=== PATIENT | female | born 1960 | race Caucasian/White ===

== ENCOUNTER 2018-02-26 16:16 | Emergency (ER) | payer OTHER ==
[2018-02-26 17:52] LABS: PLATELET COUNT 317 10^3/uL (150-400)
--- NOTE | 2018-02-26 18:09 | EDPHY ---
H & P Stated Complaint: OFF HCTZ 1 MONTH INCREASING BP/EDEMA/TINGLING IN FEET/SOB Time Seen by Provider: 02/26/18 17:10 HPI/ROS: CHIEF COMPLAINT: High blood pressure, leg swelling, fatigue HISTORY OF PRESENT ILLNESS: 58-year-old female with a history of hypertension, chronically on lisinopril, recently taken off hydrochlorothiazide, presents reporting fatigue over the last month to 3 weeks, shortness of breath, leg swelling over the last month to 3 weeks, and today noticed her blood pressure to be 150-160 systolic. She also reports feeling dizzy, off balance like she might fall. The symptoms have been present for several weeks. It is unclear if they are worse today. Patient reports being taken off her hydrochlorothiazide 1 month ago. She denies any chest pain. Shortness of breath is rather vague, states that she just feels like she is overall tired. No palpitations. No vomiting or diarrhea. No urinary complaints. No headache. No lightheadedness. REVIEW OF SYSTEMS: A comprehensive 10 system review of systems was reviewed and is otherwise negative aside from elements mentioned in the history of present illness. PAST MEDICAL HISTORY: Hypertension. Denies coronary artery disease history. SOCIAL HISTORY: Nonsmoker. Reports significant stress. VITAL SIGNS Reviewed by me. GENERAL: Well-developed, well-nourished, resting comfortably in no respiratory distress. HEENT: Atraumatic. Eyes: No icterus, no injection. Mouth: moist mucous membranes. No erythema or lesions. Neck: supple with no adenopathy. LUNGS: Clear to auscultation bilaterally, no wheezes, rhonchi or rales. CARDIAC: Regular rate and rhythm, no rubs, murmurs or gallops. ABDOMEN: Soft, nontender, nondistended, bowel sounds normal. BACK: No CVA tenderness. EXTREMITIES: No trauma. Moderate pitting edema of the left foot and toes. Trace edema in the pretibial region on the left. Trace edema on the right. Range of motion is normal throughout. NEURO: Alert and oriented, cranial nerves 2-12 are intact. Motor strength 5/5 throughout. Finger-nose and heel-caraballo normal bilaterally. Patient did walk around the emergency department with no gross gait abnormalities but reported frequently that she felt like she was off balance and might fall. SKIN: Warm and dry, no rash. PSYCHIATRIC: Normal mentation, no agitation. - Personal History Current Tetanus Diphtheria and Acellular Pertussis (TDAP): No - Medical/Surgical History Hx Asthma: No Hx Chronic Respiratory Disease: No Hx Diabetes: No Hx Cardiac Disease: No Hx Renal Disease: No Hx Cirrhosis: No Hx Alcoholism: No Hx HIV/AIDS: No Hx Splenectomy or Spleen Trauma: No Other PMH: HTN - Social History Smoking Status: Current every day smoker Constitutional: Initial Vital Signs Temperature (C) 36.9 C 02/26/18 16:20 Heart Rate 67 02/26/18 16:20 Respiratory Rate 18 02/26/18 16:20 Blood Pressure 154/97 H 02/26/18 16:20 O2 Sat (%) 96 02/26/18 16:20 O2 Delivery Mode Room Air Allergies/Adverse Reactions: ampicillin Allergy (Verified 02/26/18 16:19) Cephalosporins Allergy (Verified 02/26/18 16:20) Penicillins Allergy (Verified 02/26/18 16:19) Home Medications: Medication Instructions Recorded Lisinopril 02/26/18 Medical Decision Making - Diagnostics EKG Interpretation: 12-LEAD EKG: Please see the full report in [facility]. My interpretation: Sinus rhythm, nonspecific T-wave abnormalities in the anterior leads. Imaging Results: Imaging Impressions Chest X-Ray 02/26/18 17:29 Impression: No acute findings in the chest. ED Course/Re-evaluation: IV was placed. Patient's EKG is nonischemic although she does have some borderline T-wave abnormalities in the anterior precordium. Bedside troponin was negative. Labs demonstrate normal electrolytes, normal CBC. Chest x-ray normal. BNP 77. Given patient's complaints of feeling very off balance, feeling unsafe, feeling like she might fall with no clear nystagmus on examination, patient received meclizine 25 mg by mouth and MRI of the brain was ordered. 4 hr troponin was ordered and was negative. Patient was ambulated after receiving meclizine. She reports feeling somewhat drowsy but not as vertiginous as previously. MRI of the brain demonstrates no stroke or other significant findings. Patient comfortable being discharged to home with instructions to take meclizine as needed for dizziness, off balance feeling, to follow up with her primary care physician regarding the feet swelling and tingling. Differential Diagnosis: Differential diagnosis for the patient's shortness of breath was considered including but not limited to pulmonary infectious processes, COPD exacerbation, pulmonary emboli, pulmonary edema, congestive heart failure, and cardiac causes. Differential diagnosis of the patient's dizziness was considered including but not limited to peripheral and central causes of vertigo, cardiac arrhythmias, cardiac ischemia, electrolyte disturbances, neurologic causes, orthostatic causes including dehydration, and blood loss. - Data Points Laboratory Results: Laboratory Results 02/26/18 17:25 02/26/18 17:25 02/26/18 02/26/18 02/26/18 17:39 17:25 17:25 WBC RBC Hgb Hct MCV MCH MCHC RDW Plt Count MPV Neut % (Auto) Lymph % (Auto) [place] % (Auto) Eos % (Auto) Baso % (Auto) Nucleat RBC Rel Count Absolute Neuts (auto) Absolute Lymphs (auto) Absolute Monos (auto) Absolute Eos (auto) Absolute Basos (auto) Absolute Nucleated RBC Immature Gran % Immature Gran # D-Dimer < 0.27 ug/mLFEU ug/mLFEU (0.00-0.50) Sodium 137 mEq/L mEq/L (135-145) Potassium 4.1 mEq/L mEq/L (3.3-5.0) Chloride 105 mEq/L mEq/L (97-110) Carbon Dioxide 26 mEq/l mEq/l (22-31) Anion Gap 6 mEq/L L mEq/L (8-16) BUN 18 mg/dL mg/dL (7-23) Creatinine 0.5 mg/dL L mg/dL (0.6-1.0) Estimated GFR > 60 Glucose 92 mg/dL mg/dL (70-100) Calcium 9.4 mg/dL mg/dL (8.5-10.4) Total Bilirubin 0.4 mg/dL mg/dL (0.1-1.4) Conjugated Bilirubin 0.1 mg/dL mg/dL (0.0-0.5) Unconjugated Bilirubin 0.3 mg/dL mg/dL (0.0-1.1) AST 19 IU/L IU/L (14-46) ALT 43 IU/L IU/L (9-52) Alkaline Phosphatase 40 IU/L IU/L (38-126) POC Troponin I 0.00 ng/mL ng/mL (0.00-0.08) NT-Pro-B Natriuret Pep 77 pg/mL pg/mL (0-125) Total Protein 6.0 g/dL L g/dL (6.3-8.2) Albumin 3.8 g/dL g/dL (3.5-5.0) Lipase 59 IU/L IU/L (23-300) 02/26/18 17:25 WBC 7.04 10^3/uL 10^3/uL (3.80-9.50) RBC 4.46 10^6/uL 10^6/uL (4.18-5.33) Hgb 13.2 g/dL g/dL (12.6-16.3) Hct 40.0 % % (38.0-47.0) MCV 89.7 fL fL (81.5-99.8) MCH 29.6 pg pg (27.9-34.1) MCHC 33.0 g/dL g/dL (32.4-36.7) RDW 13.2 % % (11.5-15.2) Plt Count 317 10^3/uL 10^3/uL (150-400) MPV 9.4 fL fL (8.7-11.7) Neut % (Auto) 56.1 % % (39.3-74.2) Lymph % (Auto) 30.8 % % (15.0-45.0) [place] % (Auto) 10.2 % % (4.5-13.0) Eos % (Auto) 1.8 % % (0.6-7.6) Baso % (Auto) 0.7 % % (0.3-1.7) Nucleat RBC Rel Count 0.0 % % (0.0-0.2) Absolute Neuts (auto) 3.94 10^3/uL 10^3/uL (1.70-6.50) Absolute Lymphs (auto) 2.17 10^3/uL 10^3/uL (1.00-3.00) Absolute Monos (auto) 0.72 10^3/uL 10^3/uL (0.30-0.80) Absolute Eos (auto) 0.13 10^3/uL 10^3/uL (0.03-0.40) Absolute Basos (auto) 0.05 10^3/uL 10^3/uL (0.02-0.10) Absolute Nucleated RBC 0.00 10^3/uL 10^3/uL (0-0.01) Immature Gran % 0.4 % % (0.0-1.1) Immature Gran # 0.03 10^3/uL 10^3/uL (0.00-0.10) D-Dimer Sodium Potassium Chloride Carbon Dioxide Anion Gap BUN Creatinine Estimated GFR Glucose Calcium Total Bilirubin Conjugated Bilirubin Unconjugated Bilirubin AST ALT Alkaline Phosphatase POC Troponin I NT-Pro-B Natriuret Pep Total Protein Albumin Lipase Medications Given: Discontinued Medications Meclizine HCl (Meclizine Hcl) 25 mg PO EDNOW ONE Stop: 02/26/18 18:36 Last Admin: 02/26/18 18:44 Dose: 25 mg Point of Care Test Results: Chemistry 02/26/18 17:39 POC Troponin I 0.00 ng/mL ng/mL (0.00-0.08) Departure - Departure Disposition: Home, Routine, Self-Care Clinical Impression: Shortness of breath, Peripheral edema, Dizziness Condition: Good Instructions: Vertigo (ED), Dyspnea (ED), Fatigue (ED), Leg Edema (ED) Additional Instructions: I recommend meclizine 25 mg every 8 hr as needed for dizziness. Please follow up with your primary care physician regarding the swelling in your leg and your shortness of breath. Keep track of your blood pressures and discussed whether you should be placed back on hydrochlorothiazide. Please follow up with her primary care physician regarding a cystic structure near your optic nerve. Return to the emergency department or seek care urgently if you continued to be significantly off balance, have falling, feel unsafe at home, develops severe shortness of breath, chest pain, or other concerns. Referrals: Aristeo Diego [Primary Care Provider] - As per Instructions
[2018-02-26] MEDS ORDERED: MECLIZINE HCL 25 MG TAB PO ONE (18:35)
[2018-02-26 22:08] VITALS: BP 145/79
--- NOTE | 2018-03-03 23:16 | CPEKG ---
Test Reason : OPEN Blood Pressure : / mmHG Vent. Rate : 058 BPM Atrial Rate : 058 BPM P-R Int : 233 ms QRS Dur : 107 ms QT Int : 424 ms P-R-T Axes : 018 024 021 degrees QTc Int : 417 ms Sinus rhythm Prolonged [place] interval Low voltage, precordial leads Borderline T abnormalities, anterior leads Confirmed by Jeane Mooney ([id number]) on 03/03/2018 11:15:58 PM Referred By: Confirmed By:Jeane Mooney
== END 2018-02-26 22:27 | disposition home or self-care (01) ==
LOC: SUPCPDRO 16:16
DX: R06.02 Shortness of breath (principal); R60.0 Localized edema; R42 Dizziness and giddiness
CPT/HCPCS: 84484-PO